=== PATIENT | female | born 1960 | race Caucasian/White ===

== ENCOUNTER 2018-07-09 23:34 | Observation (INO) | payer OTHER, SELFPAY ==
--- NOTE | 2018-07-09 23:51 | DI.RAD.S_ITS ---
PROCEDURE: XR CHEST 1V INDICATIONS: chest pain TECHNIQUE: One view of the chest was acquired. COMPARISON: None. FINDINGS: Surgical changes and devices: None. Lungs and pleura: Mild increased pulmonary vascularity. Left basilar infiltrate. No pleural effusions or pneumothorax. Mediastinum: Mediastinal contours appear normal. Heart size is normal. Bones and chest wall: No suspicious bony lesions. Overlying soft tissues appear unremarkable. IMPRESSION: 1. Mild increased pulmonary vascularity suggests mild pulmonary congestion. 2. Left lower lobe infiltrate suspicious for pneumonia or aspiration. Dictated by: Effie Pena M.D. on 07/10/2018 at 8:42 Approved by: Effie Pena M.D. on 07/10/2018 at 8:43
[2018-07-09 23:55] VITALS: BP 192/176; PULSE 167; RESP 20; TEMP 36.4; O2SAT 96; BMI 32.0
[2018-07-10] VITALS (26 sets, daily range): BP systolic 123–167; BP diastolic 50–123; PULSE 59–166; RESP 12–21; TEMP 36.4–37.1; O2SAT 93–97; BMI 32.0
[2018-07-10] MEDS: dilTIAZem 5 MG/ML SDV 10 MG IV
--- NOTE | 2018-07-10 | DI.ECHO.S_ITS ---
[facility]---------+ [facility] +---------+ : : [address] : : : : [id number] : : : : Phone: [phone] Echocardiogram Report + + :Name: MEDINA RESENDIZ Study Date: 07/10/2018 Height: 62 in : :[facility] Exam Location: [facility] Weight: 175 lb : : Gender: Female BSA: 1.8 m2 : :: 1960 Age: 57 yrs BP: 129/71 mmHg: :Reason For Study: New Atrial Fibrillation : :Ordering Physician: Aissatou : :Hospitalist Performed By: Mercy Smith : :Referring: FELICIA PENNINGTON : + + Interpretation Summary The left ventricle is normal in size. The ejection fraction is estimated to be 60-65%. The right ventricle is normal in size and function. There is mild mitral regurgitation. There is mild tricuspid regurgitation. The right ventricular systolic pressure is estimated to be at least 23 mmHg based on an estimated right atrial pressure of 3 mm Hg. The ascending aorta is mildly enlarged. Procedure: A two-dimensional transthoracic echocardiogram with color flow and Doppler was performed. The study quality was technically adequate. There is no prior echocardiogram noted for this patient. The patient was in normal sinus rhythm during the exam. Left Ventricle: The left ventricle is normal in size. Left ventricular wall thickness is at the upper limits of normal. There is no thrombus. The ejection fraction is estimated to be 60-65%. There are no focal wall motion abnormalities. MV E/A: 1.1 Med Peak E' Pedro: 6.4 cm/sec E/E' med: 14.1. Right Ventricle: The right ventricle is normal in size and function. Atria: Both atria are normal in size. The interatrial septum is intact with no evidence for an atrial septal defect. Mitral Valve: There is mild mitral annular calcification. There is mild mitral regurgitation. Aortic Valve: The aortic valve is trileaflet. The aortic valve opens well. There is mild aortic valve sclerosis. There is discrete nodular thickening of the non- coronary cusp. There is no aortic valve stenosis. No aortic regurgitation is present. Tricuspid Valve: The tricuspid valve is not well visualized, but is grossly normal. The right ventricular systolic pressure is estimated to be at least 23 mmHg based on an estimated right atrial pressure of 3 mm Hg. There is mild tricuspid regurgitation. Pulmonic Valve: The pulmonic valve is not well visualized. There is mild pulmonic regurgitation. Great Vessels: The aortic root is normal size. The ascending aorta is mildly enlarged. The IVC is of normal diameter and collapses greater than 50% with a sniff. This suggests a low right atrial pressure of 3 mm Hg. Pericardium/ Pleura There is an anterior echo-free space consistent with a fat pad. There is no pericardial effusion. There is no pleural effusion. MMode/2D Measurements & Calculations LVIDd: 4.2 cm LVOT diam: 2.2 cm LVIDs: 2.1 cm Ao root diam: 3.0 cm FS: 49.3 % asc Aorta Diam: 4.0 cm EPSS: 0.74 cm IVSd: 0.97 cm LVPWd: 1.1 cm LV damon. diameter/BSA (cm/m^2): 2.3 LV sys. diameter/BSA (cm/m^2): 1.2 LA A2 area: 19.3 cm2 RA long axis: 4.0 cm LA A4 area: 13.6 cm2 RA area: 12.3 cm2 LA length (vol): 5.0 cm RA vol: 32.4 ml LA vol: 44.6 ml RA : 17.9 ml/m2 LA vol index: 24.7 ml/m2 TAPSE: 1.7 cm Doppler Measurements & Calculations Ao V2 max: 108.1 cm/sec LVOT Max Pedro: 106.8 cm/sec Ao V2 mean: 79.9 cm/sec LV V1 max P.6 mmHg Ao max P.7 mmHg LV V1 VTI: 21.1 cm Ao mean P.7 mmHg DAWNA(I,D): 4.0 cm2 Ao V2 VTI: 20.8 cm DAWNA(V,D): 3.9 cm2 sev ratio: 1.0 DAWNA indexed to BSA (cm^2/m^2): 2.2 MV E max pedro: 90.5 cm/sec TR max pedro: 225.5 cm/sec MV A max pedro: 84.2 cm/sec TR max P.3 mmHg MV E/A: 1.1 PA V2 max: 51.6 cm/sec Med Peak E' Pedro: 6.4 cm/sec PA V2 mean: 33.8 cm/sec E/E' med: 14.1 PA mean P.51 mmHg Lat Peak E' Pedro: 8.1 cm/sec PA pr(Accel): 6.6 mmHg E/E' lat: 11.2 E/e' average: 12.6 MV dec time: 0.14 sec SV(LVOT): 83.1 ml Reading Physician:LEONELA
[2018-07-10 00:02] LABS: Add Manual Diff / Slide Review NO; Basophils Absolute Auto 100 /uL (0-100); Basophils Percent Auto 0.9 % (0-2); Eosinophils Absolute Auto 400 /uL (0-450); Eosinophils Percent Auto 5.3 % (2-4); Hematocrit 41.6 % (36-46); Hemoglobin 13.7 g/dL (12.0-16.0); Lymphocytes Absolute Auto 3500 /uL (1100-4500); Mean Corpuscular Hemoglobin 27.1 PG (26-34); Mean Corpuscular Volume 82.2 fL (80-100); Monocytes Absolute Auto 700 /uL (0-900); Monocytes Percent Auto 8.8 % (3-14); Neutrophils Absolute Auto 3200 /uL (1500-7000); Platelet Count 235 X10^3/uL (150-400); Red Blood Cell Count 5.06 X10^6/uL (4.0-5.2); Red Cell Distribution Width 13.8 % (11.6-14.8); White Blood Cell Count 7.9 X10^3/uL (4.5-11.0)
[2018-07-10 00:09] LABS: Alanine Aminotransferase 76 IU/L (9-52); Albumin 4.5 g/dL (3.5-5.0); Albumin Globulin Ratio 1.2 (1.0-2.8); Alkaline Phosphatase 115 U/L (38-126); Aspartate Aminotransferase 40 IU/L (14-36); BUN Creatinine Ratio 15.6 (6-22); Bilirubin Total 0.3 mg/dL (0.2-1.3); Blood Urea Nitrogen 14 mg/dL (7-17); Calcium 9.8 mg/dL (8.4-10.2); Carbon Dioxide 25 mmol/L (22-32); Chloride 105 mmol/L (98-107); Creatine Kinase 152 U/L (30-135); Estimated Glomerular Filt Rate > 60.0 mL/min (>60); Globulin 3.7 g/dL (1.7-4.1); Glucose 139 mg/dL (70-100); HEMOLYSIS < 15 (0-50); Lipase 101 U/L (23-300); Potassium 3.8 mmol/L (3.4-5.1); Sodium 141 mmol/L (137-145); Total Protein 8.2 g/dL (6.3-8.2)
[2018-07-10] MEDS: SODIUM CHLORIDE 0.9% 1,000 ML 150 ML IV (00:18)
[2018-07-10] MEDS: ENOXAPARIN 40 MG/0.4 ML SYRINGE SUBCUT (00:18)
[2018-07-10 00:20] LABS: Troponin I < 0.012 ng/mL (0.01-0.034)
[2018-07-10 00:24] LABS: CKMB % Relative Index 1.2 % (1.5-5.0); Creatine Kinase MB 1.77 ng/mL (<2.37)
[2018-07-10] MEDS: dilTIAZem 125 MG in DEXTROSE 5 % IN WATER 100 ML IV (00:38)
[2018-07-10 00:52] LABS: Magnesium 2.1 mg/dL (1.6-2.3)
[2018-07-10] MEDS: ASPIRIN 81 MG TAB 324 MG PO (01:08)
[2018-07-10] MEDS: PROPOFOL 200 MG/20 ML VIAL 80 MG IV (01:10)
--- NOTE | 2018-07-10 01:58 | ED.CHESTPAIN ---
HPI - Chest Pain General Stated Complaint: chest pressure left arm jaw pain Time Seen by Provider: 07/09/18 23:37 Source: patient Mode of arrival: ambulatory Limitations: no limitations History of Present Illness HPI narrative: 57-year-old female nonsmoker with benign medical history presents to the emergency department this evening with a chief complaint chest pain, shortness of breath with radiation into her left shoulder and neck. She states she has had about 4 episodes of this since the holidays but has never been worked up for it. She is unclear exactly when this episode started. She denies any known thyroid history, cardiac history, extensive use of caffeine, nicotine or alcohol. MD complaint: chest pain Onset (ago): unknown Duration: intermittent Pain location: left chest Severity: moderate Quality: tightness and aching Pain radiation: neck Relieving factors: nothing Exacerbating factors: nothing Associated symptoms: dyspnea and palpitations Treatments prior to arrival chest pain: none Related Data On Oral Contraceptives: No Allergies Allergy/AdvReac Type Severity Reaction Status Date / Time No Known Drug Allergies Allergy Verified 07/10/18 00:17 Review of Systems Constitutional Denies chills, Denies fever(s), Denies lethargy and Denies weakness Eyes Denies change in vision, Denies eye discharge, Denies irritation and Denies loss of vision ENT Ears, Nose, Mouth, and Throat: Denies change in voice, Denies neck pain and Denies sore throat Cardiovascular Reports chest pain, Denies irregular heart rhythm, Denies lightheadedness, Reports palpitations, Reports dyspnea, Denies dyspnea on exertion and Denies orthopnea Respiratory Denies cough, Reports dyspnea, Denies dyspnea on exertion and Denies wheezing Gastrointestinal Gastrointestinal: Denies abdominal pain, Denies change in bowel habits, Denies diarrhea, Denies nausea and Denies vomiting Genitourinary Denies hematuria, Denies flank pain, Denies urinary incontinence and Denies urinary urgency Musculoskeletal Denies neck pain Integumentary/Breasts Denies pruritus, Denies erythema, Denies rash and Denies wounds Neurologic Denies confusion, Denies loss of vision and Denies weakness Psychiatric Denies anxiety, Denies confusion, Denies depression, Denies homicidal ideation and Denies suicidal ideation Endocrine Reports palpitations Hematologic/Lymphatic Denies easy bruising Allergic/Immunologic Denies wheezing PFSH Social History Smoking Status: Never smoker Social History Smoking Status: Never smoker Exam Narrative Exam Narrative: GENERAL: 57-year-old female appears younger than stated age in clearly in distress HEAD: Atraumatic. Normocephalic. No temporal or scalp tenderness. EYES: Pupils equal round and reactive. Extraocular motions intact. No scleral icterus. No injection or drainage. ENT: Nose without bleeding, purulent drainage or septal hematoma. Throat without erythema, tonsillar hypertrophy or exudate. Uvula midline. Airway patent. NECK: Trachea midline. No JVD or lymphadenopathy. Supple, nontender, no meningeal signs. CARDIOVASCULAR: Tachycardic but regular rhythm without murmurs, gallops, or rubs. RESPIRATORY: Clear to auscultation. Breath sounds equal bilaterally. No wheezes, rales, or rhonchi. GASTROINTESTINAL: Abdomen soft, non-tender, nondistended. No hepato-splenomegaly, or palpable masses. No guarding. EXTREMITIES: No clubbing, cyanosis, or edema. No joint tenderness, effusion, or edema noted. BACK: Nontender without deformity or crepitance. No flank tenderness. NEURO: AOx3. SKIN: No rash or erythema. Initial Vital Signs Initial Vital Signs: Vital Signs Temperature 97.6 F 07/09/18 23:55 Pulse Rate 167 H 07/09/18 23:55 Respiratory Rate 20 07/09/18 23:55 Blood Pressure 192/176 H 07/09/18 23:55 Pulse Oximetry 96 07/09/18 23:55 Procedures Cardioversion Indication: symptomatic rapid atrial fib Stability: Unstable ASA Class: II Mallampati Airway Classification: Class I Time of Last PO Intake: 18:00 Preparation: air sampling and monitoring applied, pulse oximeter, supplemental O2 applied and IV secured IV Propofol Dose (mgs): 80 Total Time of Sedation (Min): 8 Number of attempts (shocks): 2 Joules used: 50 and 150 ED Sedation Level: Moderate (Concious) Cardiac rhythm post-cardioversion: unchanged Patient tolerated procedure sedation: Well Complications sedation: none Procedural Sedation Patient Age: Patient is 5yrs or older Indication: other Time of Last PO Intake: 18:00 Preparation: air sampling and monitoring applied, pulse oximeter, capnometry used, supplemental O2 applied, suction/airway equipment at bedside and IV secured IV Propofol dose (mg): 80 ED Sedation Level: Moderate (Concious) Patient Tolerated Procedure: Well Complications: none Course Course Narrative: Patient presented and was quickly recognized to have a tachyarrhythmia which appeared to be a flutter on the monitor. Nearly immediately upon arrival to her room in attempt at conversion with a modified Valsalva maneuver was performed albeit unsuccessfully. It is unclear when her AFib/a flutter started but given her chest pain electrocardioversion was clearly indicated. The patient had been given Cardizem 10 mg prior to the cardioversion which slowed her briefly. The patient was consented and cardioversion was performed. She had a brief conversion to sinus rhythm with 50 joules, which was used given her present rhythm of a flutter. I then increased to 150 joules and she had a brief conversion to sinus rhythm that which quickly bumped back to a rapid AFib. She was given Lovenox while sedated and Cardizem drip ordered for rate control with planned admission into the ICU Orders Ordered: ED Orders 07/09/18 23:48 Complete Blood Count AUTO DIFF Stat Comprehensive Metabolic Panel Stat Lipase Stat Troponin & CK Cardiac Panel Stat 07/09/18 23:51 XR chest 1V Stat EKG-12 Lead Stat 07/10/18 00:38 Magnesium Stat Sodium Chloride (Normal Saline 0.9%) 1,000 mls @ 150 mls/hr IV CONT TRISTIN Last Infusion: 07/10/18 01:25 Dose: 150 mls/hr Admin: 07/10/18 00:18 Dose: 150 mls/hr Diltiazem HCl 125 mg/ Dextrose 125 mls @ 5 mls/hr IV TITRATE TRISTIN; Protocol Last Titration: 07/10/18 01:25 Dose: 10 mg/hr, 10 mls/hr Titration: 07/10/18 01:09 Dose: 10 mg/hr, 10 mls/hr Admin: 07/10/18 00:38 Dose: 5 mg/hr, 5 mls/hr Discontinued Medications Aspirin (Aspirin Chew) 324 mg PO NOW ONE Stop: 07/09/18 23:51 Last Admin: 07/10/18 01:08 Dose: 324 mg Diltiazem HCl (Cardizem) 10 mg IV NOW ONE Stop: 07/09/18 23:51 Last Admin: 07/10/18 00:00 Dose: 10 mg Enoxaparin Sodium (Lovenox) 40 mg SUBCUT NOW ONE Stop: 07/10/18 00:15 Last Admin: 07/10/18 00:18 Dose: 40 mg Propofol (Diprivan) 80 mg 1 mg/kg (80 mg) IV NOW ONE Stop: 07/10/18 00:54 Last Admin: 07/10/18 01:10 Dose: 80 mg Consultations Consultation #1: hospitalist is happy to accept Vital Signs - 8 hr 07/09/18 23:55 07/10/18 00:02 07/10/18 00:15 Temperature 97.6 F Pulse Rate 167 H 130 H 120 H Respiratory Rate 20 19 19 Blood Pressure 192/176 H Blood Pressure [Left Arm] 123/73 Pulse Oximetry 96 94 07/10/18 00:21 07/10/18 00:25 07/10/18 00:30 Temperature Pulse Rate 134 H 147 H 125 H Respiratory Rate 16 17 17 Blood Pressure Blood Pressure [Left Arm] 126/89 130/82 144/89 H Pulse Oximetry 97 94 96 07/10/18 00:35 07/10/18 00:38 07/10/18 00:40 Temperature Pulse Rate 143 H 166 H 134 H Respiratory Rate 20 18 Blood Pressure 143/120 H Blood Pressure [Left Arm] 143/123 H 131/99 H Pulse Oximetry 96 96 07/10/18 01:15 Temperature Pulse Rate 154 H Respiratory Rate 21 Blood Pressure Blood Pressure [Left Arm] 143/106 H Pulse Oximetry 94 MDM - Chest Pain Medical Records Data Attestation: I reviewed the patient's medical records. Lab Data Attestation: I reviewed the patient's lab results. Result diagrams: 07/09/18 23:48 07/09/18 23:48 Lab Results 07/09/18 07/09/18 07/10/18 Range/Units 23:48 23:48 00:38 WBC 7.9 (4.5-11.0) X10^3/uL RBC 5.06 (4.0-5.2) X10^6/uL Hgb 13.7 (12.0-16.0) g/dL Hct 41.6 (36-46) % MCV 82.2 (80-100) fL MCH 27.1 (26-34) PG MCHC 33.0 (30-36) % RDW 13.8 (11.6-14.8) % Plt Count 235 (150-400) X10^3/uL Neut % (Auto) 41.0 L (50-75) % Lymph % (Auto) 44.0 H (25-40) % [place] % (Auto) 8.8 (3-14) % Eos % (Auto) 5.3 H (2-4) % Baso % (Auto) 0.9 (0-2) % Neut # (Auto) 3200 (5798-5313) /uL Lymph # (Auto) 3500 (5925-6212) /uL [place] # (Auto) 700 (0-900) /uL Eos # (Auto) 400 (0-450) /uL Baso # (Auto) 100 (0-100) /uL Sodium 141 (137-145) mmol/L Potassium 3.8 (3.4-5.1) mmol/L Chloride 105 (98-107) mmol/L Carbon Dioxide 25 (22-32) mmol/L BUN 14 (7-17) mg/dL Creatinine 0.90 (0.52-1.04) mg/dL Estimated GFR > 60.0 (>60) mL/min BUN/Creatinine Ratio 15.6 (6-22) Glucose 139 H (70-100) mg/dL Calcium 9.8 (8.4-10.2) mg/dL Magnesium 2.1 (1.6-2.3) mg/dL Total Bilirubin 0.3 (0.2-1.3) mg/dL AST 40 H (14-36) IU/L ALT 76 H (9-52) IU/L Alkaline Phosphatase 115 (38-126) U/L Total Creatine Kinase 152 H (30-135) U/L CK-MB (CK-2) 1.77 (<2.37) ng/mL CK-MB (CK-2) Rel Index 1.2 L (1.5-5.0) % Troponin I < 0.012 (0.01-0.034) ng/mL Total Protein 8.2 (6.3-8.2) g/dL Albumin 4.5 (3.5-5.0) g/dL Globulin 3.7 (1.7-4.1) g/dL Albumin/Globulin Ratio 1.2 (1.0-2.8) Lipase 101 (23-300) U/L Point of Care Testing Test Results Not applicable ECG Data Attestation: I personally reviewed and interpreted this ECG as follows: Prior ECG tracings: not available for review Interpretation: Rapid AFib in the 160s without signs of ectopy Critical Care Time Critical Care Time: Yes Total Critical Care Time: 30 Attestation: The high probability of a clinically significant, sudden or life threatening deterioration of the [cardiovascular] system(s) required my full and direct attention, intervention and personal management. The aggregate critical care time was [30] minutes. This time is in addition to time spent performing reported procedures but includes the following: [x] Data Review and interpretation [x] Patient assessment and monitoring of vital signs [x] Documentation [x] Medication orders and management Discharge Plan Departure Patient Disposition: Admitted As Inpatient Clinical Impression: Atrial fibrillation with rapid ventricular response Discharge Date/Time: 07/10/18 01:40 Interventions: ED Discharge Assessment Last Done: 07/10/18 01:51 Admit Date/Time: 07/10/18 00:40 Admit Provider: Kyle Hicks
--- NOTE | 2018-07-10 03:28 | P.HP_ITS ---
History of Present Illness Date Patient Seen: 07/10/18 Time Patient Seen: 02:25 Chief complaint: chest pressure left arm jaw pain Narrative: This is a 49-year-old female patient with no significant medical history who presents to the ED with complaints chest pain and shortness of breath with radiation to the left arm and jaw. The patient reports that she has had a total of 6 such episodes since April that have all been self terminating without intervention. She does report that times she felt that her heart was going to beat out of her chest and experienced an achy dull chest pain with shortness of breath and diaphoresis in varying degrees. She presents today at the urging of her children. She reports being under increased stress with the move but no other recent illness or trauma. She takes no routine medications and is taking no medication for these episodes. She denies headaches or dizziness visual or hearing changes. She denies palpitations other than during these episodes. She denies cough and has no shortness of breath or dyspnea on exertion. She denies abdominal pain, nausea or vomiting. She reports no changes in bowel or bladder habits. On arrival in the ER at 11:55 p.m. patient had a rapid heartbeat of 167 with a blood pressure documented as 192/176. She is afebrile at 97.6 has respirations of 20 and 96% on room air. On EKG the patient was found to be in atrial flutter. In the ER a Valsalva maneuver was attempted with no effect and subsequently given Cardizem 10 mg with no change. Treatment progressed to cardioversion at 50 joules which had a brief conversion to sinus rhythm however returned back to atrial flutter. She was then shocked at 150 joules with again a brief conversion to sinus rhythm that also deteriorated though this time to atrial fibrillation. Home med the patient was given Lovenox and started on a Cardizem drip. On laboratory analysis the patient's CBC was within normal limits she does have an elevated total CK at 1:52 a.m. however her MB was negative at 1.77 with an index that was also negative at 1.2. Her troponin was negative at less than 0.012. On chemistry her electrolytes are within normal ranges with a potassium 3.8 has BUN of 14 creatinine of 0.9. Magnesium was also evaluated and found to be 2.1. The patient is to be admitted to critical care continuing atrial fibrillation on Cardizem drip. Patient History Medical History Postmenopausal (Acute) Menstrual migraine without status migrainosus (Resolved) Surgical History History of section (Acute) History of cholecystectomy (Acute) Social History household members: spouse and children Smoking Status: Never smoker alcohol intake: never Family & Social History Social History: household members spouse,children Prior Living Arrangements House Safety & Behavioral: Feels Safe in Current Yes Environment Been Physically Hurt or No Threatened By a Person Suicidal Ideation Description None Tobacco & Substance use: Smoking Status Never smoker alcohol intake never alcohol intake frequency 0-2 drinks per day Substance Use Type does not use Comment: Patient lives in a single family house with her and 2 grandchildren. She has been for 25 years. She reports that her parents are both her father passing away from what she believes is lymphoma and her mother emphysema. She has 1 brother who has no known medical problems. 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 Meds Allergies Allergy/AdvReac Type Severity Reaction Status Date / Time No Known Drug Allergies Allergy Verified 07/10/18 00:17 Review of Systems Review of Systems All systems reviewed & are unremarkable except as noted in HPI and below Exam Vital Signs (past 8 hours): - 07/09/18 23:55 07/10/18 00:02 07/10/18 00:15 Temperature 97.6 F Pulse Rate 167 H 130 H 120 H Respiratory Rate 20 19 19 Blood Pressure 192/176 H Blood Pressure [Left Arm] 123/73 Pulse Oximetry 96 94 07/10/18 00:21 07/10/18 00:25 07/10/18 00:30 Temperature Pulse Rate 134 H 147 H 125 H Respiratory Rate 16 17 17 Blood Pressure Blood Pressure [Left Arm] 126/89 130/82 144/89 H Pulse Oximetry 97 94 96 07/10/18 00:35 07/10/18 00:38 07/10/18 00:40 Temperature Pulse Rate 143 H 166 H 134 H Respiratory Rate 20 18 Blood Pressure 143/120 H Blood Pressure [Left Arm] 143/123 H 131/99 H Pulse Oximetry 96 96 07/10/18 01:15 07/10/18 02:01 07/10/18 02:05 Temperature 98.0 F 98.0 F Pulse Rate 154 H 149 H 132 H Respiratory Rate 21 21 15 Blood Pressure 167/100 H 138/80 Blood Pressure [Left Arm] 143/106 H Pulse Oximetry 94 93 95 Oxygen Delivery Method Nasal Cannula Oxygen Flow Rate 3 Narrative Exam Narrative: General: Well developed, obese with BMI 32.0, in no acute distress. Skin: Warm, dry, pink, no rashes, no visible lesions HEENT: Normocephalic, PERRLA, EOMs intact without nystagmus, conjunctiva moist, sclera is anicteric, earing grossly normal, no sinus tenderness to percussion, no rhinorrhea, oropharynx is moist and pink without lesions or exudate, uvula midline, posterior pharynx without inflammation, no cervical lymphadenopathy Neck: Supple, no masses, thyroid non tender without thyromegaly or nodules, trachea midline, no carotid bruits or JVD, no supraclavicular lymphadenopathy Cardiac: Regular rate and rhythm, S1-S2, no murmur, no gallops or rubs, 2+ radial pulse, 1+ dorsalis pedis pulse, capillary refill is brisk, trace bilateral pedal edema Chest: Symmetrical movement, breathing non labored, no cough present, BS equal bilateral without coarseness, crackles or wheezes Abdomen: Soft, round, no tenderness or guarding, no masses or organomegaly, no flank or suprapubic pain, BS normal. Back: Normal curvature, no tenderness to palpation, no CVA tenderness on percussion Extremities: Full ROM, no synovial effusions or deformities, strength 5/5 and symmetrical, stable gait Neuro: AAOx4, cranial nerves II-XII grossly intact, distal sensation intact to light touch, no paresthesias Psych: pleasant, thought coherent, stable mood and congruent affect Objective Labs Result Diagrams: 07/09/18 23:48 07/09/18 23:48 Labs: Laboratory Results - last 24 hr 07/09/18 07/09/18 07/10/18 23:48 23:48 00:38 WBC 7.9 RBC 5.06 Hgb 13.7 Hct 41.6 MCV 82.2 MCH 27.1 MCHC 33.0 RDW 13.8 Plt Count 235 Neut % (Auto) 41.0 L Lymph % (Auto) 44.0 H [place] % (Auto) 8.8 Eos % (Auto) 5.3 H Baso % (Auto) 0.9 Neut # (Auto) 3200 Lymph # (Auto) 3500 [place] # (Auto) 700 Eos # (Auto) 400 Baso # (Auto) 100 Sodium 141 Potassium 3.8 Chloride 105 Carbon Dioxide 25 BUN 14 Creatinine 0.90 Estimated GFR > 60.0 BUN/Creatinine Ratio 15.6 Glucose 139 H Calcium 9.8 Magnesium 2.1 Total Bilirubin 0.3 AST 40 H ALT 76 H Alkaline Phosphatase 115 Total Creatine Kinase 152 H CK-MB (CK-2) 1.77 CK-MB (CK-2) Rel Index 1.2 L Troponin I < 0.012 Total Protein 8.2 Albumin 4.5 Globulin 3.7 Albumin/Globulin Ratio 1.2 Lipase 101 Assessment & Plan Assessment & Plan narrative: The patient is admitted to intensive care for atrial fibrillation with RVR on a Cardizem drip. 1. Atrial fibrillation with RVR, acute -patient with 6 episodes of rapid heartbeat and chest pain since April -all episodes have been self terminating, no continuing complaints of chest pain, radiation or shortness of breath -patient failed cardioversion in the ER and started on Cardizem drip arriving in intensive care at 15 units/hour which is continued. -heparin 5000 units subcutaneously twice daily -echocardiogram in the morning 2. Elevated blood pressure without diagnosis of hypertension, present on admission -initial blood pressure of 1 92/176 is considered invalid however the patient has continued elevated blood pressures documented in the ER -the patient has a blood pressure of 123/73 on 15 milligrams/hour of Cardizem. -will add metoprolol 25 mg twice daily. 3. Mild elevation transaminases, present on admission -AST mildly elevated at 40, ALT mildly elevated at 76, patient is status post cholecystectomy -the elevation is likely related to fatty liver, check lipid panel. The patient is admitted to intensive care due to severity since the meds the necessity for close monitoring and risk of complications. The patient will be inpatient status. Quality VTE Deep Vein Thrombosis/Pulmonary Embolism Present on Admission: No
[2018-07-10] MEDS: SODIUM CHLORIDE 0.9% 1,000 ML 50 ML IV (04:00)
[2018-07-10 04:04] LABS: BUN Creatinine Ratio 18.8 (6-22); Blood Urea Nitrogen 15 mg/dL (7-17); Calcium 9.4 mg/dL (8.4-10.2); Carbon Dioxide 28 mmol/L (22-32); Chloride 106 mmol/L (98-107); Estimated Glomerular Filt Rate > 60.0 mL/min (>60); Glucose 124 mg/dL (70-100); HEMOLYSIS < 15 (0-50); Potassium 4.5 mmol/L (3.4-5.1); Sodium 141 mmol/L (137-145)
[2018-07-10 04:12] LABS: Cholesterol 228 mg/dL (140-199); HDL Cholesterol 58 mg/dL (40-60); LDL Cholesterol Calculated 151 mg/dL (<100); Triglycerides 95 mg/dL (35-150)
[2018-07-10 04:18] LABS: Troponin I 0.017 ng/mL (0.01-0.034)
[2018-07-10 04:43] LABS: TSH w/ Reflex to FT4 1.39 uIU/mL (0.47-4.68)
--- NOTE | 2018-07-10 06:07 | PC.NURSE ---
Addendum entered by Catalina De Los Santos R.N. 07/10/18 06:14: 0230 Pt converted to NSR w/1 AVB rate 70 to 90. Yesenia Hicks nofified, 12 lead EKG ordered and completed. Possible ST elevation, troponin ordered. Remains on Diltiazem gtt at 10mg/hr. Denies CP. Will have ECHO in AM, car clerk pullman consult. Pt states has been having episodes since April. Original Note: NOC Shift Admit: Pt admitted w/new onset Afib RVR. Pt came to ED tonight w/slight CP, bilateral arm numbness, diaphoresis. Found to have Afib RVR w/HR greater than 160. Attempted cardioversion twice w/o success. Was placed on Diltiazem gtt. Pt AAOx3 on admit, ambulatory w/SBA. Afib RVR >150 w/activity. HTN pt states having diagnosis of HTN years ago, but not since. Does not take any home meds, is healthy but high stressed life at the time. Denies CP on admit. Diltiazem gtt increased to 15mg/hr to control rate. Yesenia Hicks AUGER OPERATOR in to evaluate pt. ICU care.
[2018-07-10] MEDS: PANTOPRAZOLE 40 MG TABLET PO (06:46)
[2018-07-10] MEDS: METOPROLOL IR 50 MG TABLET PO (08:02)
[2018-07-10] MEDS: ASPIRIN EC 81 MG TABLET PO (08:55)
[2018-07-10] MEDS: HEPARIN 5,000 UNIT/ML VIAL 5000 UNIT SUBCUT ×2 (08:56→21:14)
--- NOTE | 2018-07-10 12:24 | CM.DANOTE ---
DCP: Case received, EMR reviewed and met with patient. Introduced self and role. DCP template completed with information currently available. Patient is a 57 year old female who admitted early this morning to the care of the hospitalist team. PCP: None, but establishing at [facility]. Payer: confirmed: [facility]. Patient came to hospital via family vehicle, she had driven here, secondary to chest pain and heart palpitations. She carries diagnosis of A-Fib. She had been cardioverted as well. Is in ICU with Cardikymberly murry. Stated, she was feeling better. She lives with her , and her two grandchildren live with her as well. She has no provider now, but stated that she has an appt in September with a new provider at [facility]. She is hopeful that the hospitalist can call them and get her in sooner. P: DCP to continue to follow. Patient may be able to go home tomorrow when she is stable. Carli Salinas RN/C.O.D. [place]
[2018-07-10] MEDS: ACETAMINOPHEN 325 MG TABLET 650 MG PO (15:56)
[2018-07-10] MEDS: METOPROLOL ER 25 MG TABLET PO (21:21)
[2018-07-10] MEDS: SODIUM CHLORIDE 0.9% FLUSH 10 ML IV (21:24)
[2018-07-11] VITALS (7 sets, daily range): BP systolic 148–158; BP diastolic 72–79; PULSE 58–69; RESP 11–23; TEMP 35.8–37.2; O2SAT 92–97
[2018-07-11] MEDS: PANTOPRAZOLE 40 MG TABLET PO (06:52)
--- NOTE | 2018-07-11 07:59 | P.DS_ITS ---
History of Present Illness Chief complaint: chest pressure left arm jaw pain Discharge Providers Date of admission: 07/10/18 00:40 Discharge provider: Re Lima MD Discharge Date: 07/11/18 Summary Discharge Diagnosis: Atrial fibrillation, now rate controlled Hypertension Hospital Course: 49-year-old female with no significant past medical history presented to emergency department on July 10, 2018 complaining of chest pain and shortness of breath with radiation to the left arm and the jaw. Duration of symptoms on and off has been since April 2018. Associated with shortness of breath and diaphoresis, and palpitations. On arrival to ED, patient was noted to have heart rate of 167. EKG showed atrial flutter with RVR. The rest of the vital signs were stable. Valsalva maneuver has been attempted with no significant improvement in heart rate. Patient was then given Cardizem 10 mg, but again no improvement. Patient was then cardioverted with 50 J, after which patient reverted to sinus rhythm however went back to atrial flutter after few moments. The patient was shocked again with 150 J and again converted for brief moment, but then went into atrial fibrillation. She was started on Cardizem drip and transferred to ICU for further management. Troponin was negative. Once in ICU, patient was successfully titrated off of Cardizem drip, and switched over to metoprolol initially 50 mg q.8 hours, but then switched to metoprolol 50 mg b.i.d. patient however did have a drop of heart rate to 50, therefore metoprolol has been decreased to 25 mg b.i.d.. Echo was performed which revealed EF of 60-65%, no wall motion abnormalities. All chambers are normal in size. No stenosis or sclerosis noted. There was mild tricuspid regurgitation. Given patient's chads Vasc score of 2, patient was given a choice of anticoagulation, and she opted for anticoagulation. She was started on Eliquis 5 mg p.o. b.i.d.. Patient is to follow up with her primary care doctor, as well as vp product management regarding a possibility of ablation in the near future. During the admission, patient's blood pressure has been elevated throughout her stay. Once patient was switched to metoprolol 25 mg p.o. b.i.d., her blood pressure still remained 140s/70s. Patient was started on lisinopril 5 mg p.o. daily, and instructed to follow up with her primary care physician for further adjustment of her blood pressure medications. Status at Discharge Functional status at discharge: independent ambulation Overall status at discharge: patient is back to baseline Time Spent with Patient Greater than 30 minutes Exam Vital Signs (past 8 hours): - 07/11/18 00:00 07/11/18 01:00 07/11/18 04:17 Temperature 96.5 F L 97.6 F Pulse Rate 65 60 Respiratory Rate 23 15 Blood Pressure 155/72 H 158/74 H Pulse Oximetry 97 92 96 07/11/18 07:21 Temperature 99 F Pulse Rate 58 L Respiratory Rate 11 L Blood Pressure 148/79 H Pulse Oximetry 93 Oxygen Delivery Method Room Air Oxygen Flow Rate 0 Narrative Exam Narrative: General: No acute distress, A/O x3 HEENT: PERRLA bilaterally, EOMI bilaterally Neck: Supple, no LAD CV: Irregular rhythm, normal rate. No murmurs or gallops appreciated Respiratory: Lungs are clear to auscultation bilaterally, no rhonchi or crackles GI: Positive bowel sounds in all 4 quadrants, no organomegaly, no tenderness to palpation Musculoskeletal: Normal range of motion. No weakness Skin: No bruising or lesions noted. No edema Neuro: AAO x3, no focal deficits Psych: Appropriate mood. Patient is able to make her own decisions Objective Labs Result Diagrams: 07/09/18 23:48 07/10/18 03:42 Discharge Plan Discharge Plan Discharge Problem: Atrial fibrillation with rapid ventricular response Patient Disposition: Home Discharge comment: Needs follow up with PCP within 1 week Needs follow up with Cardiology within one month Discharge Med Rec/Prescriptions Prescriptions: New metoprolol succinate 25 mg Tablet Extended Release 24 Hr 25 mg PO BID 30 Days Qty: 60 RF: 0 Eliquis 5 mg Tablet 5 mg PO BID 30 Days Qty: 60 RF: 0 lisinopril 5 mg tablet 5 mg PO DAILY Qty: 30 RF: 2 Follow up/Referrals: Eris Marcus MD [Physician] - 1 Month (Needs evaluation for ablation) Provider Discharge Instructions Diet: Low-sodium Discharge Data Attending Provider: Kyle Hicks Admit Date/Time: 07/10/18 00:40 Quality VTE Deep Vein Thrombosis/Pulmonary Embolism Present on Admission: No
[2018-07-11] MEDS: METOPROLOL ER 25 MG TABLET PO (08:31)
[2018-07-11] MEDS: ASPIRIN EC 81 MG TABLET PO (08:31)
[2018-07-11] MEDS: HEPARIN 5,000 UNIT/ML VIAL 5000 UNIT SUBCUT (08:33)
[2018-07-11] MEDS: APIXABAN 5 MG TABLET PO (08:33)
[2018-07-11] MEDS: LISINOPRIL 5 MG TABLET PO (08:33)
[2018-07-11] MEDS: SODIUM CHLORIDE 0.9% FLUSH 10 ML IV (08:36)
--- NOTE | 2018-07-11 11:34 | CM.DPC ---
DCP: continued: case received and d/c to home order noted. Dr. Lima noted that pt needed PCP followup and was having difficulty getting an appt in a timely way. Spoke with [facility] and obtained info on their assist for clinic appts program. Spoke then with CUTTING SUPERVISOR Mel to make sure pt was still there before going to see her. Mel reported that pt had left for home but the ICU staff were able to get pt an appt with [facility] Dr. Darian Valladares for this MondayJuly 13.
== END 2018-07-11 10:45 | disposition home or self-care (01) ==
LOC: ED 07-10 00:16 → ICU 07-10 01:40
PROVIDERS: Admitting Provider Nurse Practitioner Adult Health; Emergency Provider Emergency Medicine; Visit Provider Nurse Practitioner Adult Health
DX: R07.9 Chest pain, unspecified (principal); I48.91 Unspecified atrial fibrillation; I48.92 Unspecified atrial flutter; R03.0 Elevated blood-pressure reading, without diagnosis of hypertension
CPT/HCPCS: 36415; 36591; 71045; 80048; 80053; 80061; 82550; 82553; 83690; 83735; 84443; 84484; 85025; 87797; 92960; 93005; 93010; 93306; 94770; 96365; 96375; 99152; 99284; 99285; 99291; 99292; G0378; J1644; J1650; J2704

== ENCOUNTER 2018-09-11 18:09 | Emergency (ER) | payer OTHER, SELFPAY ==
[2018-07-10 02:12] VITALS: BMI 32.0
[2018-09-11 18:18] VITALS: BP 180/103; PULSE 93; RESP 20; TEMP 37.1; O2SAT 98
--- NOTE | 2018-09-11 18:20 | DI.RAD.S_ITS ---
PROCEDURE: XR CHEST 1V INDICATIONS: chest pain TECHNIQUE: One view of the chest was acquired. COMPARISON: [facility], CR, XR CHEST 1V, 07/09/2018, 23:54. FINDINGS: Surgical changes and devices: Support wires overlie the chest. Lungs and pleura: Lungs are clear. No pleural effusions or pneumothorax. Mediastinum: Mediastinal contours appear normal. Heart size is normal. Bones and chest wall: No suspicious bony lesions. Overlying soft tissues appear unremarkable. IMPRESSION: Normal chest. Dictated by: Marisa Levine M.D. on 09/11/2018 at 19:44 Approved by: Marisa Levine M.D. on 09/11/2018 at 19:44
--- NOTE | 2018-09-11 18:33 | ED.CHESTPAIN ---
HPI - Chest Pain General Chief Complaint: Chest Pain Stated Complaint: CHEST PAIN Time Seen by Provider: 09/11/18 18:33 Source: patient Mode of arrival: ambulatory Limitations: no limitations History of Present Illness HPI narrative: Patient is a 57-year-old female here for evaluation of palpitations. Patient has had a history of atrial fibrillation in the past where she was seen in this emergency department. She failed cardioversion and was then subsequently rate controlled and spontaneously converted. She is currently on metoprolol twice a day. She has an initial appointment the legal financial specialist next week. She states that approximately 30 minutes prior to arrival she bent over when she felt her heart fluttering. She states it felt very similar to when she was diagnosed with atrial fibrillation. She tried Valsalva maneuvers at home which did not help any of her symptoms. She had not taken her night dose of her metoprolol so she went inside and took this dose and then drove to the emergency department. She denied any chest pain or shortness of breath or lightheadedness at the time. She states that by the time she got to the triage room it felt like her heart rate had slowed down and she was no longer feeling palpitations. By the time I evaluated her patient had no symptoms. Related Data Home Medications Medication Instructions Recorded Confirmed cetirizine 10 mg tablet 10 mg PO DAILY PRN 07/13/18 08/21/18 Previous Rx's Medication Instructions Recorded apixaban 5 mg tablet 5 mg PO BID #60 tab 08/10/18 metoprolol succinate ER 25 mg 25 mg PO BID #60 tab 08/10/18 tablet,extended release 24 hr sumatriptan 100 mg tablet See Rx Instructions PO Q2-4H PRN 08/21/18 #20 tab MDD 300mg Allergies Allergy/AdvReac Type Severity Reaction Status Date / Time No Known Drug Allergies Allergy Verified 08/21/18 10:40 Review of Systems Constitutional Denies fever(s) Cardiovascular Denies chest pain, Reports irregular heart rhythm, Reports palpitations and Denies dyspnea Respiratory Denies dyspnea Gastrointestinal Gastrointestinal: Denies abdominal pain Musculoskeletal Denies myalgias and Denies arthralgias Integumentary/Breasts Denies rash Endocrine Reports palpitations Hematologic/Lymphatic Comments: Currently on apixaban Allergic/Immunologic Denies urticaria PFSH Medical History Paroxysmal atrial fibrillation (Chronic) Hypertension (Chronic) H/O migraine (Chronic ~1989) Postmenopausal (Chronic) Seasonal allergies (Chronic ~1981) Vision disorder (Chronic) Chicken pox (Resolved ~1965) Menstrual migraine without status migrainosus (Resolved) Surgical History (Updated 08/18/18 @ 21:54 by Alice Schmitt) Anesthesia (Resolved) History of section (Resolved) History of cholecystectomy (Resolved ~1989) Family History (Updated 08/18/18 @ 21:58 by Alice Schmitt) Father Cancer Mother Diabetes mellitus Heart disease Grandfather No problems noted. Grandmother Cancer Grandmother Heart disease Social History household members: spouse and children Smoking Status: Never smoker alcohol intake: never Social History household members: spouse and children Smoking Status: Never smoker alcohol intake: never Exam Initial Vital Signs Initial Vital Signs: Vital Signs Temperature 98.8 F 09/11/18 18:18 Pulse Rate 93 H 09/11/18 18:18 Respiratory Rate 20 09/11/18 18:18 Blood Pressure 180/103 H 09/11/18 18:18 Pulse Oximetry 98 09/11/18 18:18 Const General: cooperative, well developed, well groomed and No acute distress Orientation: alert, awake and oriented x3 HENMT Head: normal to inspection and normocephalic Resp Effort & Inspection: normal respiratory effort Auscultation: clear to auscultation bilaterally Cardio Rate: regular rate Rhythm: regular rhythm Pulses: radial pulses present Skin Lesions: no lesions Rashes: no rashes Neuro General: alert and awake Cognition: normal cognition Speech: speech normal Extrem General: normal to inspection and capillary refill normal Psych Appearance: grossly normal and well kempt Course Orders Ordered: ED Orders 09/11/18 18:34 B Type Natriuretic Peptide Stat Complete Blood Count AUTO DIFF Stat Comprehensive Metabolic Panel Stat Partial Thromboplastin Time Stat Prothrombin Time INR Stat Troponin & CK Cardiac Panel Stat Vital Signs - 8 hr 09/11/18 19:34 09/11/18 19:45 Pulse Rate 100 H 96 H Respiratory Rate 14 19 Blood Pressure 167/91 H Blood Pressure [Left Arm] 167/91 H Pulse Oximetry 98 97 MDM - Chest Pain Lab Data Attestation: I reviewed the patient's lab results. Result diagrams: 09/11/18 18:34 09/11/18 18:34 Lab Results 09/11/18 09/11/18 09/11/18 Range/Units 18:34 18:34 18:34 WBC 6.3 (4.5-11.0) X10^3/uL RBC 4.82 (4.0-5.2) X10^6/uL Hgb 13.0 (12.0-16.0) g/dL Hct 39.9 (36-46) % MCV 82.6 (80-100) fL MCH 26.9 (26-34) PG MCHC 32.6 (30-36) % RDW 13.8 (11.6-14.8) % Plt Count 242 (150-400) X10^3/uL Neut % (Auto) 39.7 L (50-75) % Lymph % (Auto) 46.2 H (25-40) % Ector % (Auto) 8.1 (3-14) % Eos % (Auto) 5.0 H (2-4) % Baso % (Auto) 1.0 (0-2) % Neut # (Auto) 2500 (3566-3500) /uL Lymph # (Auto) 2900 (1652-8001) /uL Ector # (Auto) 500 (0-900) /uL Eos # (Auto) 300 (0-450) /uL Baso # (Auto) 100 (0-100) /uL PT 11.8 (10.1-12.7) SECONDS INR 1.0 (0.9-1.3) APTT 37 H (26.4-36.2) SECONDS Sodium 137 (137-145) mmol/L Potassium 3.6 (3.4-5.1) mmol/L Chloride 100 (98-107) mmol/L Carbon Dioxide 24 (22-32) mmol/L BUN 17 (7-17) mg/dL Creatinine 0.90 (0.52-1.04) mg/dL Estimated GFR > 60.0 (>60) mL/min BUN/Creatinine Ratio 18.9 (6-22) Glucose 179 H (70-100) mg/dL Calcium 9.6 (8.4-10.2) mg/dL Total Bilirubin 0.3 (0.2-1.3) mg/dL AST 35 (14-36) IU/L ALT 43 (9-52) IU/L Alkaline Phosphatase 138 H (38-126) U/L Total Creatine Kinase 137 H (30-135) U/L CK-MB (CK-2) 1.17 (<2.37) ng/mL CK-MB (CK-2) Rel Index 0.9 L (1.5-5.0) % Troponin I < 0.012 (0.01-0.034) ng/mL B-Natriuretic Peptide (<100) Total Protein 8.7 H (6.3-8.2) g/dL Albumin 4.8 (3.5-5.0) g/dL Globulin 3.9 (1.7-4.1) g/dL Albumin/Globulin Ratio 1.2 (1.0-2.8) 09/11/18 Range/Units 18:34 WBC (4.5-11.0) X10^3/uL RBC (4.0-5.2) X10^6/uL Hgb (12.0-16.0) g/dL Hct (36-46) % MCV (80-100) fL MCH (26-34) PG MCHC (30-36) % RDW (11.6-14.8) % Plt Count (150-400) X10^3/uL Neut % (Auto) (50-75) % Lymph % (Auto) (25-40) % Ector % (Auto) (3-14) % Eos % (Auto) (2-4) % Baso % (Auto) (0-2) % Neut # (Auto) (1045-2841) /uL Lymph # (Auto) (7507-0669) /uL Ector # (Auto) (0-900) /uL Eos # (Auto) (0-450) /uL Baso # (Auto) (0-100) /uL PT (10.1-12.7) SECONDS INR (0.9-1.3) APTT (26.4-36.2) SECONDS Sodium (137-145) mmol/L Potassium (3.4-5.1) mmol/L Chloride (98-107) mmol/L Carbon Dioxide (22-32) mmol/L BUN (7-17) mg/dL Creatinine (0.52-1.04) mg/dL Estimated GFR (>60) mL/min BUN/Creatinine Ratio (6-22) Glucose (70-100) mg/dL Calcium (8.4-10.2) mg/dL Total Bilirubin (0.2-1.3) mg/dL AST (14-36) IU/L ALT (9-52) IU/L Alkaline Phosphatase (38-126) U/L Total Creatine Kinase (30-135) U/L CK-MB (CK-2) (<2.37) ng/mL CK-MB (CK-2) Rel Index (1.5-5.0) % Troponin I (0.01-0.034) ng/mL B-Natriuretic Peptide 107 H (<100) Total Protein (6.3-8.2) g/dL Albumin (3.5-5.0) g/dL Globulin (1.7-4.1) g/dL Albumin/Globulin Ratio (1.0-2.8) Imaging Data Chest x-ray: Radiologist's impression: [place] [address] XRay Report Signed Patient: Belem De Los Santos LMR#: [id number] : 1960Acct:[id number] Age/Sex: 57 / FDate of Service: 09/11/18 Loc: ED Accession Number: [id number] Procedure: XR chest 1V Ordering Provider: Garrick Benjamin D.O. PROCEDURE: XR CHEST 1V INDICATIONS: chest pain TECHNIQUE: One view of the chest was acquired. COMPARISON: [facility], , XR CHEST 1V, 07/09/2018, 23:54. FINDINGS: Surgical changes and devices: Support wires overlie the chest. Lungs and pleura: Lungs are clear. No pleural effusions or pneumothorax. Mediastinum: Mediastinal contours appear normal. Heart size is normal. Bones and chest wall: No suspicious bony lesions. Overlying soft tissues appear unremarkable. IMPRESSION: Normal chest. Dictated by: Marisa Levine M.D. on 09/11/2018 at 19:44 Approved by: Marisa Levine M.D. on 09/11/2018 at 19:44 ECG Data Attestation: I personally reviewed and interpreted this ECG as follows: Prior ECG tracings: not available for review Interpretation: Sinus rhythm Ventricular rate of 93 Normal axis Normal QRS Normal QTC No ST T wave changes MDM Narrative Medical decision making narrative: Patient most likely had an episode of atrial fibrillation however I suspect that when she took her dose of metoprolol at home this improved her symptoms. This the 1st time she has had an episode like this and she was discharged from the hospital. Will hold on further workup for now. Patient was given return precautions and follow-up instructions. She expressed understanding and agreement with plan. Discharge Plan Departure Patient Disposition: Home Clinical Impression: Heart palpitations Atrial fibrillation Qualifiers: Atrial fibrillation type: unspecified Qualified Code(s): I48.91 - Unspecified atrial fibrillation Discharge Date/Time: 09/11/18 19:46 Interventions: ED Discharge Assessment Last Done: 09/11/18 19:45 Instructions: DI for Arrhythmias Activity Restrictions/Additional Instructions: I recommend that you keep your follow-up appointment that you have with Cardiology on Monday. Continue all of your medications as directed. Return to the emergency department for any new symptoms, symptoms that do not go away, chest pain, problems breathing, passing out, or any other concerning symptoms. Prescriptions: No Action metoprolol succinate 25 mg tablet extended release 24 hr 25 mg PO BID Qty: 60 RF: 4 Eliquis 5 mg tablet 5 mg PO BID Qty: 60 RF: 4 cetirizine [Zyrtec] 10 mg tablet 10 mg PO DAILY PRNRF: 0 sumatriptan succinate [Imitrex] 100 mg tablet See Rx Instructions PO Q2-4H MDD 300mg PRN (Reason: migraine headache) Qty: 20 RF: 4 Referrals: Tyrone Rocha MD [Primary Care Provider] -
[2018-09-11 18:39] VITALS: PULSE 89; RESP 14; O2SAT 98
[2018-09-11 18:41] LABS: Add Manual Diff / Slide Review NO; Basophils Absolute Auto 100 /uL (0-100); Eosinophils Absolute Auto 300 /uL (0-450); Hematocrit 39.9 % (36-46); Lymphocytes Absolute Auto 2900 /uL (1100-4500); Lymphocytes Percent Auto 46.2 % (25-40); Mean Corpuscular HGB Conc 32.6 % (30-36); Mean Corpuscular Hemoglobin 26.9 PG (26-34); Mean Corpuscular Volume 82.6 fL (80-100); Monocytes Absolute Auto 500 /uL (0-900); Monocytes Percent Auto 8.1 % (3-14); Neutrophils Absolute Auto 2500 /uL (1500-7000); Neutrophils Percent Auto 39.7 % (50-75); Platelet Count 242 X10^3/uL (150-400); Red Blood Cell Count 4.82 X10^6/uL (4.0-5.2); Red Cell Distribution Width 13.8 % (11.6-14.8); White Blood Cell Count 6.3 X10^3/uL (4.5-11.0)
[2018-09-11 18:46] LABS: Prothrombin Time 11.8 SECONDS (10.1-12.7)
[2018-09-11 18:49] LABS: PTT Partial Thromboplastin Tim 37 SECONDS (26.4-36.2)
[2018-09-11 18:52] LABS: Alanine Aminotransferase 43 IU/L (9-52); Albumin 4.8 g/dL (3.5-5.0); Albumin Globulin Ratio 1.2 (1.0-2.8); Alkaline Phosphatase 138 U/L (38-126); Aspartate Aminotransferase 35 IU/L (14-36); BUN Creatinine Ratio 18.9 (6-22); Bilirubin Total 0.3 mg/dL (0.2-1.3); Blood Urea Nitrogen 17 mg/dL (7-17); Calcium 9.6 mg/dL (8.4-10.2); Carbon Dioxide 24 mmol/L (22-32); Chloride 100 mmol/L (98-107); Creatine Kinase 137 U/L (30-135); Estimated Glomerular Filt Rate > 60.0 mL/min (>60); Globulin 3.9 g/dL (1.7-4.1); Glucose 179 mg/dL (70-100); HEMOLYSIS 18 (0-50); Potassium 3.6 mmol/L (3.4-5.1); Sodium 137 mmol/L (137-145); Total Protein 8.7 g/dL (6.3-8.2)
[2018-09-11 19:03] LABS: Troponin I < 0.012 ng/mL (0.01-0.034)
[2018-09-11 19:07] LABS: CKMB % Relative Index 0.9 % (1.5-5.0); Creatine Kinase MB 1.17 ng/mL (<2.37)
[2018-09-11 19:17] LABS: B Type Natriuretic Peptide 107 (<100)
[2018-09-11 19:34] VITALS: BP 167/91; PULSE 100; RESP 14; O2SAT 98
[2018-09-11 19:45] VITALS: BP 167/91; PULSE 96; RESP 19; O2SAT 97
== END 2018-09-11 19:46 | disposition home or self-care (01) ==
PROVIDERS: Emergency Provider Emergency Medicine; PCP Internal Medicine
DX: R00.2 Palpitations (principal); I48.91 Unspecified atrial fibrillation; R07.89 Other chest pain
CPT/HCPCS: 36591; 71045; 80053; 82550; 82553; 83880; 84484; 85025; 85610; 85730; 93005; 99282; 99285

== ENCOUNTER → 2019-10-16 07:33 | Outpatient (CLI) | payer OTHER, SELFPAY ==
[2018-07-10 02:12] VITALS: BMI 32.0
[2019-10-16 08:24] LABS: Alanine Aminotransferase 45 IU/L (<35); Albumin 4.8 g/dL (3.5-5.0); Albumin Globulin Ratio 1.4 (1.0-2.8); Alkaline Phosphatase 86 U/L (38-126); Aspartate Aminotransferase 35 IU/L (14-36); Bilirubin Total 0.6 mg/dL (0.2-1.3); Blood Urea Nitrogen 14 mg/dL (7-17); Carbon Dioxide 27 mmol/L (22-32); Chloride 96 mmol/L (98-107); Cholesterol 251 mg/dL (140-199); Estimated Glomerular Filt Rate > 60.0 mL/min (>60); Globulin 3.5 g/dL (1.7-4.1); Glucose 103 mg/dL (80-110); HDL Cholesterol 49 mg/dL (40-60); HEMOLYSIS < 15 (0-50); LDL Cholesterol Calculated 176 mg/dL (<100); Potassium 4.2 mmol/L (3.4-5.1); Sodium 133 mmol/L (137-145); Total Protein 8.3 g/dL (6.3-8.2); Triglycerides 131 mg/dL (35-150)
[2019-10-16 08:37] LABS: Free T4, Direct Thyroxine 1.12 ng/dL (0.78-2.19)
[2019-10-16 08:51] LABS: Thyroid Stimulating Hormone 0.45 uIU/mL (0.47-4.68)
== END ==
PROVIDERS: PCP Internal Medicine; Referring Provider Internal Medicine; Visit Provider Internal Medicine
DX: Z13.220 Encounter for screening for lipoid disorders (principal); I10 Essential (primary) hypertension; I48.0 Paroxysmal atrial fibrillation
CPT/HCPCS: 36415; 80053; 80061; 84439; 84443

== ENCOUNTER → 2019-10-18 09:41 | Outpatient (CLI) | payer OTHER, SELFPAY ==
[2018-07-10 02:12] VITALS: BMI 32.0
--- NOTE | 2019-10-18 09:43 | DI.RAD.S_ITS ---
PROCEDURE: XR ELBOW RT MIN 3V INDICATIONS: elbow pain TECHNIQUE: 3 views of the elbow were acquired. COMPARISON: None. FINDINGS: Bones: No fractures or dislocations. No suspicious bony lesions. Cortical hypertrophy and sclerosis present at the medial and lateral epicondyles. Soft tissues: No elbow joint effusion. No suspicious soft tissue calcifications. IMPRESSION: Radiographic appearance suggests chronic medial and lateral epicondylitis syndrome. This could be further assessed with dedicated elbow MRI as clinically warranted Dictated by: Ovi Watts M.D. on 10/18/2019 at 11:25 Approved by: Ovi Watts M.D. on 10/18/2019 at 11:27
== END ==
PROVIDERS: PCP Internal Medicine; Referring Provider Internal Medicine; Visit Provider Internal Medicine
DX: M25.521 Pain in right elbow (principal); I48.0 Paroxysmal atrial fibrillation
CPT/HCPCS: 73080

== ENCOUNTER → 2020-02-11 10:25 | Outpatient (CLI) | payer OTHER, SELFPAY ==
[2018-07-10 02:12] VITALS: BMI 32.0
[2020-02-12 09:35] LABS: COVID19 Sendout Not Detected (Not Detect)
== END ==
PROVIDERS: PCP Internal Medicine; Visit Provider Physician Assistant
DX: Z11.59 Encounter for screening for other viral diseases (principal)
CPT/HCPCS: 87635

== ENCOUNTER → 2020-02-14 12:47 | Outpatient (CLI) | payer OTHER, SELFPAY ==
[2018-07-10 02:12] VITALS: BMI 32.0
--- NOTE | 2020-02-20 10:00 | PM.PFT.1 ---
Pulmonary Function Test Referral & Results Date Patient Seen: 02/14/20 Requesting provider: Tyrone Rocha Results: The spirometry demonstrates an FVC of 2.15 L which is 70% of predicted. The FEV1 was measured at 1.83 L which is 77% of predicted. The FEV1/FVC ratio was 85 which is 109% of predicted. Following the administration of bronchodilator there was no appreciable change. Lung volumes show an SVC of 2.19 L which is 76% of predicted. The diffusing capacity was measured at 20.84 which is 96% of predicted. The maximum voluntary ventilation was reduced Interpretation: This study demonstrates mild obstructive lung disease based on reduction FEV1, although flow volume loop does not display this well. There may also be a slight reduction in lung volumes suggesting mild restrictive lung disease No evidence of benefit following bronchodilator and no evidence of capillary alveolar disease based on normal diffusing capacity Clinical correlation suggested
== END ==
PROVIDERS: PCP Internal Medicine; Referring Provider Internal Medicine; Visit Provider Internal Medicine
DX: R05 Cough (principal); J98.8 Other specified respiratory disorders
CPT/HCPCS: 94060; 94726; 94729

== ENCOUNTER → 2020-05-06 08:23 | Outpatient (CLI) | payer OTHER, SELFPAY ==
[2018-07-10 02:12] VITALS: BMI 32.0
[2020-05-06 08:54] LABS: COVID19 -Nasal RAPID POSITIVE (Negative)
== END ==
PROVIDERS: PCP Internal Medicine; Visit Provider Family Medicine
DX: U07.1 COVID-19 (principal)
CPT/HCPCS: 87635

== ENCOUNTER → 2020-06-02 13:21 | Outpatient (CLI) | payer OTHER, SELFPAY ==
[2018-07-10 02:12] VITALS: BMI 32.0
[2020-06-02 15:57] LABS: BUN Creatinine Ratio 23.5 (6-22); Blood Urea Nitrogen 16 mg/dL (7-17); Calcium 9.8 mg/dL (8.4-10.2); Carbon Dioxide 30 mmol/L (22-32); Chloride 96 mmol/L (98-107); Estimated Glomerular Filt Rate > 60.0 mL/min (>60); Glucose 97 mg/dL (80-110); HEMOLYSIS < 15 (0-50); Potassium 4.3 mmol/L (3.4-5.1); Sodium 132 mmol/L (137-145)
== END ==
PROVIDERS: PCP Internal Medicine; Referring Provider Internal Medicine; Visit Provider Registered Nurse
DX: I10 Essential (primary) hypertension (principal); I48.91 Unspecified atrial fibrillation
CPT/HCPCS: 36415; 80048

== ENCOUNTER → 2020-07-20 14:23 | Outpatient (CLI) | payer OTHER, SELFPAY ==
[2018-07-10 02:12] VITALS: BMI 32.0
[2020-07-20 16:44] LABS: Thyroid Stimulating Hormone 1.64 uIU/mL (0.47-4.68)
== END ==
PROVIDERS: PCP Internal Medicine; Referring Provider Registered Nurse; Visit Provider Registered Nurse
DX: I10 Essential (primary) hypertension (principal); I48.91 Unspecified atrial fibrillation; Z98.890 Other specified postprocedural states
CPT/HCPCS: 36415; 84443

== ENCOUNTER 2020-08-25 17:52 | Emergency (ER) | payer OTHER, SELFPAY ==
[2018-07-10 02:12] VITALS: BMI 32.0
[2020-08-25 18:00] VITALS: BP 120/76; PULSE 92; RESP 18; TEMP 36.7; O2SAT 99
--- NOTE | 2020-08-25 18:06 | DI.US.S_ITS ---
PROCEDURE: US PERIPH VENOUS LOW EXTREM LT INDICATIONS: r/o dvt TECHNIQUE: Real-time imaging, as well as color and pulse Doppler interrogation, were performed of the lower extremity deep veins from the inguinal ligament to the popliteal fossa. COMPARISON: None. FINDINGS: The common femoral, femoral and popliteal veins are normally compressible, and free of intraluminal thrombus. Color and pulse Doppler demonstrate normal phasic intraluminal flow. There is normal augmentation response to distal compression maneuver. IMPRESSION: No sonographic evidence of deep venous thrombosis in the left lower extremity. Dictated by: Ever Knight M.D. on 08/25/2020 at 18:43 Approved by: Ever Knight M.D. on 08/25/2020 at 18:43
--- NOTE | 2020-08-25 19:41 | ED_ITS ---
HPI - Extremity Problem General Chief complaint: Extremity Problem,Nontraumatic Stated complaint: LEFT LEG PAIN AND KNEE Time Seen by Provider: 08/25/20 19:34 Source: patient Mode of arrival: Ambulatory Limitations: no limitations History of Present Illness HPI Narrative: Patient is a 59-year-old female who approximately 1 week ago woke up with pain on the inside of her right knee. She denied any specific trauma. States that it does seem to swell up points but then resolves. Seems to be much better in the morning before she gets up and walks around. She went to the walk-in clinic because she had read online that these were some of the symptoms that could be associated with a blood clot. She was sent from the walk-in clinic for evaluation of potential blood clot. Related Data Home Medications Medication Instructions Recorded Confirmed cetirizine 10 mg tablet 10 mg PO DAILY PRN 07/13/18 08/25/20 hydrochlorothiazide 12.5 mg tablet 12.5 mg PO DAILY tab 01/25/19 08/25/20 metoprolol tartrate 50 mg tablet 50 mg PO DAILY PRN tab 07/26/19 08/25/20 Previous Rx's Medication Instructions Recorded metoprolol succinate 100 mg 100 mg PO DAILY #90 tab 07/26/19 tablet,extended release 24 hr azelastine 137 mcg (0.1 %) nasal 2 spray NASAL BID #30 ml 12/12/19 spray aerosol apixaban 5 mg tablet See Rx Instructions .ROUTE 03/24/20 .COMPLEX #60 tablet sumatriptan succinate 100 mg tablet See Rx Instructions PO Q2-4H PRN 03/30/20 #20 tab MDD 300mg omeprazole 40 mg capsule,delayed 40 mg PO DAILY #30 cap 04/22/20 release amoxicillin 500 mg-potassium 1 tab PO BID #28 tab 05/06/20 clavulanate 125 mg tablet Allergies Allergy/AdvReac Type Severity Reaction Status Date / Time No Known Drug Allergies Allergy Verified 08/25/20 11:41 Review of Systems Constitutional Constitutional: Denies fever(s) Musculoskeletal Musculoskeletal: Denies tingling Comments: Left knee discomfort Integumentary/Breasts Skin/Breast: Denies rash Neurologic Neurologic: Denies tingling Hematologic/Lymphatic On Anticoagulants: No Allergic/Immunologic Allergic/Immunologic: Denies urticaria Patient History Medical History Acute maxillary sinusitis, unspecified Chronic cough COVID-19 H/O migraine (~1989) Hypertension Menstrual migraine without status migrainosus Paroxysmal atrial fibrillation Postmenopausal Screening for malignant neoplasm of breast Seasonal allergies (~1981) Vision disorder Surgical History Anesthesia History of section History of cholecystectomy (~1989) Family History Father Cancer Mother Diabetes mellitus Heart disease Grandfather No problems noted. Grandmother Cancer Grandmother Heart disease Social History household members: spouse and children Smoking Status: Never smoker alcohol intake: never Smoking Status: Never smoker alcohol intake frequency: 0-2 drinks per day Substance Use Type: does not use Exam Initial Vital Signs Initial Vital Signs: Vital Signs Temperature 98.0 F 08/25/20 18:00 Pulse Rate 92 H 08/25/20 18:00 Respiratory Rate 18 08/25/20 18:00 Blood Pressure 120/76 08/25/20 18:00 Pulse Oximetry 99 08/25/20 18:00 Const General: cooperative and comfortable Limitations: mental status not altered HENMT Head: normal to inspection and normocephalic Skin Lesions: no lesions Rashes: no rashes Neuro General: patient alert and patient awake Extrem Other: Tenderness to palpation along the medial aspect of the left knee Psych Appearance: grossly normal and well kempt Course Orders Ordered: ED Orders 08/25/20 18:06 US periph venous low extrem lt Stat Vital Signs Vital signs: Vital Signs - 8 hr 08/25/20 18:00 08/25/20 19:52 Temperature 98.0 F Pulse Rate 92 H 88 Respiratory Rate 18 20 Blood Pressure 120/76 108/73 Pulse Oximetry 99 99 MDM - Extremity (Nontraumatic) Imaging Data US - DVT: Radiologist's Impression: [address] [id number] ReportSigned Patient: Belem De Los Santos LMR#: [id number]: [id number]:[id number]/Sex: 59 / FDate of Service: 08/25/20Loc: EDAccession Number: [id number] Procedure: US periph venous low extrem lt Ordering Provider: Garrick Benjamin D.O. PROCEDURE: US PERIPH VENOUS LOW EXTREM LT INDICATIONS: r/o dvt TECHNIQUE: Real-time imaging, as well as color and pulse Doppler interrogation, were performed of the lower extremity deep veins from the inguinal ligament to the popliteal fossa. COMPARISON: None. FINDINGS: The common femoral, femoral and popliteal veins are normally compressible, and free of intraluminal thrombus. Color and pulse Doppler demonstrate normal phasic intraluminal flow. There is normal augmentation response to distal compression maneuver. IMPRESSION: No sonographic evidence of deep venous thrombosis in the left lower extremity. Dictated by: Ever Knight M.D. on 08/25/2020 at 18:43 Approved by: Ever Knight M.D. on 08/25/2020 at 18:43 [facility] Narrative Medical decision making narrative: No DVT found on the ultrasound. Physical exam is not consistent with cellulitis. She is neurovascularly intact. I do suspect that this is a arthritic reaction based on her description of which she presents with. This could also be an issue with her meniscus because she sometimes describes clicking and popping sensations. No indication for further radiologic studies here in the ER. I the patient follow with her primary provider. She was given return precautions. She expressed understanding and agreement. Discharge Plan Departure Patient Disposition: Home Clinical Impression: Acute knee pain Instructions: DI for Knee Pain Activity Restrictions/Additional Instructions: Recommend that you keep your knee elevated and iced especially when the symptoms are at its worse. Contact your primary provider for follow-up and to discuss further evaluation. Return to the emergency department for any new or worsening symptoms Prescriptions: No Action Eliquis 5 mg tablet See Rx Instructions .ROUTE .COMPLEX Qty: 60 RF: 3 sumatriptan succinate [Imitrex] 100 mg tablet See Rx Instructions PO Q2-4H MDD 300mg PRN (Reason: migraine headache) Qty: 20 RF: 4 omeprazole 40 mg capsule,delayed release(DR/EC) 40 mg PO DAILY Qty: 30 RF: 3 cetirizine [Zyrtec] 10 mg tablet 10 mg PO DAILY PRNRF: 0 hydrochlorothiazide 12.5 mg tablet 12.5 mg PO DAILY RF: 0 metoprolol tartrate 50 mg tablet 50 mg PO DAILY PRNRF: 0 metoprolol succinate 100 mg tablet extended release 24 hr 100 mg PO DAILY Qty: 90 RF: 3 amoxicillin-pot clavulanate 500-125 mg tablet 1 tab PO BID Qty: 28 RF: 1 azelastine 137 mcg (0.1 %) aerosol,spray 2 spray NASAL BID Qty: 30 RF: 3 Referrals: Tyrone Rocha MD [Primary Care Provider] -
[2020-08-25 19:52] VITALS: BP 108/73; PULSE 88; RESP 20; O2SAT 99
== END 2020-08-25 19:52 | disposition home or self-care (01) ==
PROVIDERS: Emergency Provider Emergency Medicine; PCP Internal Medicine
DX: M25.562 Pain in left knee (principal)
CPT/HCPCS: 93971; 99281; 99283